=== PATIENT | female | born 1985 | race African-American/Black ===

== ENCOUNTER 2020-10-21 18:05 | Emergency (ER) | payer OTHER ==
[~2020-10-21] VITALS: Ht 172.7 cm; Wt 97.5 kg
[2020-10-21] MEDS ORDERED: ONDANSETRON HCL/PF 4 MG/2 ML VIAL ONE (18:57)
--- NOTE | 2020-10-21 18:59 | NUR ---
us at bedside
[2020-10-21 19:00] LABS: BILIRUBIN,URINE Negative (NEGATIVE); COLOR,URINE YELLOW (YELLOW); LEUKOCYTE ESTERASE ,URINE Negative (NEGATIVE); NITRITE, URINE Negative (NEGATIVE); PH,URINE 5.5 (5.0-8.0); PROTEIN,URINE Negative (NEGATIVE); UGLUCOSE Negative (NEGATIVE); UROBILINOGEN,URINE 0.2 EU/dL (0.2)
[2020-10-21] MEDS ORDERED: ONDANSETRON HCL/PF 4 MG/2 ML VIAL IVP ONE (19:00)
[2020-10-21] MEDS ORDERED: IV NS 0.9% 1,000 ML BAG IV ONE (19:00)
[2020-10-21 19:03] LABS: BASOPHILS # (AUTO) 0.1 K/uL (0.0-0.2); BASOPHILS % (AUTO) 0.9 % (0.0-2.0); EOSINOPHILS % (AUTO) 2.7 % (0.0-6.0); HEMATOCRIT 36 % (33-45); HEMOGLOBIN 12.4 g/dL (11.5-14.8); LYMPHOCYTES # (AUTO) 3.9 K/uL (0.8-4.8); LYMPHOCYTES % (AUTO) 44.2 % (20.0-44.0); MEAN CORPUSCULAR HGB CONC 35 g/dl (31.0-36.0); MEAN CORPUSCULAR VOLUME 94 fL (82-100); MONOCYTES # (AUTO) 0.8 K/uL (0.1-1.30); MONOCYTES % (AUTO) 9.4 % (2.0-12.0); NEUTROPHILS # (AUTO) 3.8 K/uL (1.8-8.9); NEUTROPHILS % (AUTO) 42.8 % (43.0-81.0); PLATELET COUNT (AUTO) 341 K/uL (150-450); RED BLOOD CELL COUNT(AUTO) 3.79 MIL/uL (4.0-5.2); WHITE BLOOD COUNT (AUTO) 8.9 K/uL (4.3-11.0)
--- NOTE | 2020-10-21 19:03 | NUR ---
IV 1000ML NS STARTED ON R AC 20. ENDTIME 2002
--- NOTE | 2020-10-21 19:04 | NUR ---
ZOFRAN 4MG IV GIVEN ON R AC 20G. [facility]
[2020-10-21 19:38] LABS: ALBUMIN 3.4 g/dL (3.4-5.0); BILIRUBIN,DIRECT 0.1 mg/dL (0.0-0.2); BILIRUBIN,TOTAL 0.2 mg/dL (0.2-1.0); CALCIUM, SERUM 8.8 mg/dL (8.5-10.1); CREATININE 0.7 mg/dL (0.6-1.3); POTASSIUM 3.9 mmol/L (3.5-5.1); TOTAL PROTEIN, SERUM 6.5 g/dL (6.4-8.2)
--- NOTE | 2020-10-21 19:54 | NUR ---
BIBPARTNER FROM HOME TO ER BED 16. AAOX4. NOT IN RESP DISTRESS. AMBULATORY. BROUGHT CAME IN FOR NAUSEA AND VOMMITNG EVERYMORNIGN X 1 MONTH. PER PT, SHE IS BUT UNKNOWN HOW LONG. PT STATES THAT SHE IS LIKE THIS WHEN SHE IS BUT THIS IS WORST. PROVIDER WAS AT THE BEDSIDE. ORDERS RECEIVED, NOTED AND CARRIED OUT. IV LINE ESTABLSIHED ON THE R AC 20G.
[2020-10-21] MEDS ORDERED: ONDA4TAB11 PO (20:05)
[2020-10-21] MEDS ORDERED: PROG200C15 PO (20:05)
--- NOTE | 2020-10-21 20:20 | NUR ---
Patient discharged to home in stable condition. Written and verbal after care instructions given. Patient verbalizes understanding of instruction. IV removed. Catheter intact and site benign. Pressure and 4x4 applied to site. No bleeding noted. Pt ambulatory with a steady gait
[2020-10-21 22:36] VITALS: BP 110/66
== END 2020-10-21 20:21 | disposition home or self-care (01) ==
LOC: ER 18:13
DX: O21.0 Mild hyperemesis gravidarum (principal); Z3A.01 Less than 8 weeks gestation of pregnancy
CPT/HCPCS: 36415; 76805; 80048; 80076; 81003; 84702; 85025; 86850; 96361; 96374; 99284; J2405; J7030